=== PATIENT | male | born 1950 | race Native Hawaiian/Other Pacific Islander ===

== ENCOUNTER 2017-10-18 16:06 | Emergency (ER) | payer OTHER ==
[~2017-10-18] VITALS: Ht 185.4 cm; Wt 98.9 kg
[2017-10-18 16:17] VITALS: TEMP 99.9
[2017-10-18 16:59] LABS: PLATELET COUNT 311 K/uL (142-355)
[2017-10-18 17:08] LABS: POTASSIUM 4.5 mmol/L (3.6-5.2)
[2017-10-18 17:33] VITALS: BP 187/99
== END 2017-10-18 17:33 | disposition home or self-care (01) ==
LOC: ED 16:06
DX: G45.9 Transient cerebral ischemic attack, unspecified (principal)
CPT/HCPCS: 36415; 80053; 83735; 85027; 96360; 99284

== ENCOUNTER 2017-10-18 18:13 | Emergency (ER) | payer OTHER ==
[~2017-10-18] VITALS: Ht 185.4 cm; Wt 98.9 kg
[2017-10-18 18:50] LABS: PARTIAL THROMBOPLASTIN TIME 25.9 SECONDS (24.5-33.6)
[2017-10-18 21:25] VITALS: BP 195/112
== END 2017-10-18 21:47 | disposition short-term general hospital (02) ==
LOC: ED 18:13
DX: G45.9 Transient cerebral ischemic attack, unspecified (principal)
CPT/HCPCS: 80061; 85610; 85730; 99285

== ENCOUNTER 2017-10-18 21:48 | Outpatient (CLI) | payer OTHER | END 2017-10-18 23:01 | disposition short-term general hospital (02) | LOC: AMB 21:48 | DX: G45.9 Transient cerebral ischemic attack, unspecified (principal) | CPT/HCPCS: A0425; A0429 ==